=== PATIENT | male | born 1990 | race Caucasian/White ===

== ENCOUNTER 2024-10-20 10:46 | Emergency (ER) | payer MEDICAID ==
[~2024-10-20] VITALS: Ht 167.6 cm; Wt 68.0 kg
[2024-10-20 10:53] VITALS: O2SAT 98
[2024-10-20 12:23] LABS: BASOPHILS % 2.7 % (0.0-2.0); EOSINOPHILS % 0.3 % (0.0-5.0); HEMATOCRIT. 32.6 % (42.0-52.0); HEMOGLOBIN. 11.1 g/dL (14.0-18.0); LYMPHOCYTES % 11.1 % (20.0-50.0); MEAN CORPUSCULAR HEMOGLOBIN 30.9 pg (28.0-32.0); MEAN CORPUSCULAR HGB CONC 34.1 g/dL (31.0-37.0); MEAN CORPUSCULAR VOLUME 90.7 fL (80.0-94.0); MEAN PLATELET VOLUME 6.5 fl (7.4-10.4); MONOCYTES % 2.7 % (2.0-8.0); NEUTROPHILS % 83.2 % (40.0-76.0); PLATELET 229 x1000/uL (130-400); RED BLOOD CELL COUNT 3.59 mill/uL (4.7-6.1); RED CELL DISTRIBUTION WIDTH 13.7 % (11.6-14.6); WHITE BLOOD COUNT 4.5 x1000/uL (4.5-11.0)
[2024-10-20 13:15] LABS: CHLORIDE 106 mEq/L (98-107); POTASSIUM 3.5 mEq/L (3.5-5.1); SODIUM 140 mEq/L (136-145)
[2024-10-20 13:16] LABS: CALCIUM 8.5 mg/dL (8.7-10.4); CARBON DIOXIDE 25 mEq/L (21-32)
[2024-10-20] MEDS: KETOROLAC 30MG/ML VIAL IV STA (13:19)
[2024-10-20] MEDS: METOCLOPRAMIDE HCL 10MG/2ML VIAL IV ONE (13:19)
[2024-10-20] MEDS: SODIUM CHLORIDE 0.9% 1,000 ML IV ONE (13:19)
[2024-10-20 13:21] LABS: CREATININE 0.5 mg/dL (0.6-1.3); GLUCOSE 103 mg/dL (70-105); UREA NITROGEN BLOOD < 5 mg/dL (9-23)
[2024-10-20 13:22] LABS: TROPONIN I HIGH SENSITIVITY 4 ng/L (3.0-53)
[2024-10-20 13:31] LABS: ETHANOL BLOOD 354 mg/dL (<10)
[2024-10-20] MEDS ORDERED: TOPUD PO (13:31)
[2024-10-20 13:41] VITALS: BP 111/67; PULSE 86; RESP 23; TEMP 37.1; O2SAT 95
== END 2024-10-20 13:48 | disposition home or self-care (01) ==
LOC: EDBD 10:46 → ER 10:46 → EDBEDREQ 12:53 → ER 13:48
DX: R51.9 Headache, unspecified (principal); Z79.899 Other long term (current) drug therapy
CPT/HCPCS: 80048; 80320; 82962; 85025; 84484; 36415; 71045; 70450; 96361; 96374; 96375; 99285; J1885; J2765; J7030; Z7610; G0480